=== PATIENT | male | born 1955 ===

== ENCOUNTER 2020-04-28 07:12 | Outpatient (CLI) | payer OTHER | END 2020-04-28 07:30 | disposition home or self-care (01) | LOC: NUCLEAR 07:12 | PROVIDERS: ATTEND Urology | DX: N40.0 Benign prostatic hyperplasia without lower urinary tract symptoms (principal) | CPT/HCPCS: 78803; A9503 ==

== ENCOUNTER 2020-06-05 08:28 | Outpatient (CLI) | payer OTHER | END 2020-06-05 08:32 | disposition home or self-care (01) | LOC: SONOGRAMA 08:28 | PROVIDERS: ATTEND Pathology Anatomic Pathology & Clinical Pathology | DX: R19.8 Other specified symptoms and signs involving the digestive system and abdomen (principal) ==